=== PATIENT | male | born 1945 | race Caucasian/White ===

== ENCOUNTER 2017-04-12 13:47 | Inpatient (IN) | payer OTHER ==
[~2017-04-12] VITALS: Ht 172.7 cm; Wt 46.8 kg
[2017-04-12 14:33] LABS: HEMATOCRIT 32.2 % (38.0-50.0); HEMOGLOBIN 10.5 G/DL (12.5-16.6); MCH 29.7 PG (29.0-34.0); MCHC 32.6 G/DL (30.0-36.0); PLATELET COUNT 192 K/uL (156-360); RBC DIS.WIDTH-CV 15.5 % (11.8-14.6); RBC DIS.WIDTH-SD 51.2 % (39-53); RED BLOOD COUNT 3.54 M/uL (4.00-5.50); WHITE BLOOD COUNT 5.9 K/uL (4.1-10.2)
[2017-04-12 14:51] LABS: CHLORIDE 108 mEq/L (99-109); POTASSIUM 4.3 mEq/L (3.7-5.4); SODIUM 139 mEq/L (136-147)
[2017-04-12 14:53] LABS: GLUCOSE 96 mg/dL (70-99)
[2017-04-12 14:57] LABS: CREATININE 2.4 mg/dL (0.6-1.3); GFR ESTIMATE (CALCULATED) 29 mL/min/ (58.99-99999)
[2017-04-12 14:58] LABS: UREA NITROGEN (BUN) 38 mg/dL (9-23)
[2017-04-12 16:50] LABS: TROP-I INTERPRETATION NEGATIVE; TROPONIN-I 0.03 ng/mL (0.0-0.30)
[2017-04-12 18:36] LABS: ALBUMIN 2.9 g/dL (3.2-4.8)
[2017-04-12 18:38] LABS: TOTAL PROTEIN 5.6 g/dL (6.4-8.3)
[2017-04-12 18:40] LABS: TOTAL BILIRUBIN 0.3 mg/dL (0.0-1.0)
[2017-04-12 18:41] LABS: ALKALINE PHOSPHATASE 209 IU/L (3-129)
[2017-04-12 18:44] LABS: ALT (GPT) 31 IU/L (3-49); AST (GOT) 38 IU/L (2-34); DIRECT BILIRUBIN 0.2 mg/dL (0.0-0.3)
[2017-04-12 18:45] LABS: LIPASE 21 U/L (1.0-51.0)
[2017-04-12 18:50] LABS: APPEARANCE SL.HAZY ((CLEAR)); BILIRUBIN NEGATIVE; BLOOD LARGE; COLOR YELLOW ((YELLOW)); GLUCOSE (STRIP) 50; KETONES 5; LEUKOCYTES NEGATIVE; NITRITE NEGATIVE; PROTEIN (STRIP) >=500; UROBILINOGEN 0.2 MG/DL (0.2-1.0)
[2017-04-12 18:59] LABS: BACTERIA RARE /HPF; EPITHELIAL CELLS RARE /HPF; MUCUS TRACE /LPF; RED BLOOD CELLS TNTC /HPF (0-5)
[2017-04-12] MEDS ORDERED: LO-DOSE ASPIRIN81 M2 PO (19:42)
[2017-04-12 23:56] VITALS: BP 143/74
[2017-04-13] VITALS (7 sets, daily range): BP systolic 101–149; BP diastolic 55–84
[2017-04-13 00:41] LABS: TROP-I INTERPRETATION NEGATIVE; TROPONIN-I 0.07 ng/mL (0.0-0.30)
[2017-04-13 07:56] LABS: INTER. NORMALIZED RATIO 1.1
[2017-04-13 07:58] LABS: PTT 38.8 SEC (25-37)
[2017-04-13 07:59] LABS: HEMATOCRIT 30.3 % (38.0-50.0); HEMOGLOBIN 9.8 G/DL (12.5-16.6); MCH 29.1 PG (29.0-34.0); MCHC 32.3 G/DL (30.0-36.0); MCV 89.9 FL (86-99); PLATELET COUNT 188 K/uL (156-360); RBC DIS.WIDTH-CV 15.6 % (11.8-14.6); RBC DIS.WIDTH-SD 51.7 % (39-53); RED BLOOD COUNT 3.37 M/uL (4.00-5.50); WHITE BLOOD COUNT 5.5 K/uL (4.1-10.2)
[2017-04-13 08:04] LABS: CHLORIDE 110 MEQ/L (99-109); POTASSIUM 4.7 MEQ/L (3.7-5.4); SODIUM 140 MEQ/L (136-147)
[2017-04-13 08:10] LABS: CREATININE 2.3 MG/DL (0.6-1.3); GFR ESTIMATE (CALCULATED) 30 mL/min/ (58.99-99999); GLUCOSE 79 mg/dL (70-99); LACTATE DEHYDROGENASE 262 IU/L (20-246); TOTAL PROTEIN 5.1 G/DL (6.4-8.3); UREA NITROGEN (BUN) 36 mg/dL (9-23)
[2017-04-13 09:40] LABS: TYPE OF FLUID PLEURAL
[2017-04-13 09:57] LABS: TYPE OF FLUID THORACENTESIS
[2017-04-13 10:24] LABS: APPEARANCE CLEAR-COLORLESS; BODY FLUID EOSINOPHILS 0 % (0-25); BODY FLUID RBC'S < 1000 /MM^3 (0-100); BODY FLUID WBC'S 437 /MM^3 (0-500); MONONUCLEAR WBC'S 99 %; POLYNUCLEAR WBC'S 1 % (0-25)
[2017-04-13 10:59] LABS: BODY FLUID LDH 48 IU/L; BODY FLUID PROTEIN < 3.0 G/DL
[2017-04-13 11:00] LABS: BODY FLUID LDH 54 IU/L; BODY FLUID PROTEIN < 3.0 G/DL
[2017-04-13 11:07] LABS: APPEARANCE SL. HAZY-COLORLESS; BODY FLUID EOSINOPHILS 0 % (0-25); BODY FLUID RBC'S 1000 /MM^3 (0-100); BODY FLUID WBC'S 1120 /MM^3 (0-500); MONONUCLEAR WBC'S 94 %; POLYNUCLEAR WBC'S 6 % (0-25)
[2017-04-14 05:32] VITALS: BP 115/71
[2017-04-14 06:38] LABS: HEMATOCRIT 27.7 % (38.0-50.0); HEMOGLOBIN 9.1 G/DL (12.5-16.6); MCH 29.2 PG (29.0-34.0); MCHC 32.9 G/DL (30.0-36.0); MCV 88.8 FL (86-99); PLATELET COUNT 235 K/uL (156-360); RBC DIS.WIDTH-CV 15.8 % (11.8-14.6); RBC DIS.WIDTH-SD 51.4 % (39-53); RED BLOOD COUNT 3.12 M/uL (4.00-5.50); WHITE BLOOD COUNT 7.6 K/uL (4.1-10.2)
[2017-04-14 06:47] LABS: CHLORIDE 105 MEQ/L (99-109); CREATININE 2.6 MG/DL (0.6-1.3); GFR ESTIMATE (CALCULATED) 26 mL/min/ (58.99-99999); GLUCOSE 78 mg/dL (70-99); POTASSIUM 4.5 MEQ/L (3.7-5.4); UREA NITROGEN (BUN) 38 mg/dL (9-23)
[2017-04-14 06:57] LABS: SODIUM 132 MEQ/L (136-147)
[2017-04-14 08:27] VITALS: BP 118/61
[2017-04-14 10:08] LABS: CHLORIDE 104 MEQ/L (99-109); CREATININE 2.7 MG/DL (0.6-1.3); GFR ESTIMATE (CALCULATED) 25 mL/min/ (58.99-99999); SODIUM 135 MEQ/L (136-147); UREA NITROGEN (BUN) 36 mg/dL (9-23)
[2017-04-14 10:11] LABS: GLUCOSE 108 mg/dL (70-99)
[2017-04-14 11:30] VITALS: BP 113/64
[2017-04-14 15:58] VITALS: BP 104/56
[2017-04-14 19:52] VITALS: BP 106/58
[2017-04-14 23:19] VITALS: BP 102/59
[2017-04-15] VITALS (7 sets, daily range): BP systolic 95–116; BP diastolic 52–61
[2017-04-15 05:50] LABS: BASOPHIL (%) 0.5 % (0-1); EOSINOPHIL (%) 4.5 % (0-5); EOSINOPHIL COUNT 0.3 K/uL (0-0.3); HEMATOCRIT 25.6 % (38.0-50.0); HEMOGLOBIN 8.3 G/DL (12.5-16.6); IMMATURE GRANULOCYTE (%) 0.3 % (0.0-0.7); LYMPHOCYTE (%) 28.3 % (15-42); LYMPHOCYTE COUNT 1.7 K/uL (1.0-2.8); MCH 28.9 PG (29.0-34.0); MCHC 32.4 G/DL (30.0-36.0); MCV 89.2 FL (86-99); MONOCYTE (%) 7.3 % (3-12); MONOCYTE COUNT 0.4 K/uL (0-0.8); NEUTROPHIL (%) 59.1 % (45-76); NEUTROPHIL COUNT 3.6 K/uL (1.8-6.4); PLATELET COUNT 210 K/uL (156-360); RBC DIS.WIDTH-CV 15.7 % (11.8-14.6); RBC DIS.WIDTH-SD 50.7 % (39-53); RED BLOOD COUNT 2.87 M/uL (4.00-5.50)
[2017-04-15 06:11] LABS: C4 COMPLEMENT 55 MG/DL (10-40)
[2017-04-15 06:12] LABS: ALBUMIN 2.2 G/DL (3.2-4.8); ALKALINE PHOSPHATASE 128 IU/L (3-129); ALT (GPT) 14 IU/L (3-49); AST (GOT) 23 IU/L (2-34); CHLORIDE 101 MEQ/L (99-109); CREATININE 2.7 MG/DL (0.6-1.3); GFR ESTIMATE (CALCULATED) 25 mL/min/ (58.99-99999); GLUCOSE 88 mg/dL (70-99); POTASSIUM 4.9 MEQ/L (3.7-5.4); SODIUM 131 MEQ/L (136-147); TOTAL BILIRUBIN 0.4 MG/DL (0.0-1.0); UREA NITROGEN (BUN) 44 mg/dL (9-23)
[2017-04-15 06:13] LABS: INTACT PARATHYROID HORMONE 131 pg/mL (10-69)
[2017-04-15 06:14] LABS: CHLORIDE 102 MEQ/L (99-109); CREATININE 2.6 MG/DL (0.6-1.3); GFR ESTIMATE (CALCULATED) 26 mL/min/ (58.99-99999); GLUCOSE 91 mg/dL (70-99); PHOSPHORUS 3.4 mg/dL (2.5-4.9); POTASSIUM 4.9 MEQ/L (3.7-5.4); SODIUM 131 MEQ/L (136-147); UREA NITROGEN (BUN) 44 mg/dL (9-23)
[2017-04-15 06:15] LABS: A/G RATIO 0.9 (1.1-1.8); ALBUMIN 2.1 G/DL (3.4-5.0); GLOBULINS 2.4 G/DL (2.3-3.5); TOTAL PROTEIN 4.5 G/DL (6.4-8.2)
[2017-04-15 09:56] LABS: HEPATITIS B SURFACE ANTIGEN Nonreactive
[2017-04-15 09:57] LABS: HEPATITIS C ANTIBODY Nonreactive
[2017-04-15 13:05] LABS: ALBUMIN 1.92 G/DL (3.6-4.9); ALPHA-1 GLOBULIN 0.39 G/DL (0.15-0.40); ALPHA-2 GLOBULIN 0.75 G/DL (0.45-0.85); GAMMA-GLOBULIN 0.75 G/DL (0.60-1.35)
[2017-04-16 03:36] VITALS: BP 110/53
[2017-04-16 04:56] LABS: UR CREATININE CONCENTRATION 147.8 MG/DL
[2017-04-16 05:23] LABS: BASOPHIL (%) 0.5 % (0-1); EOSINOPHIL (%) 4.8 % (0-5); EOSINOPHIL COUNT 0.3 K/uL (0-0.3); HEMATOCRIT 26.1 % (38.0-50.0); HEMOGLOBIN 8.6 G/DL (12.5-16.6); IMMATURE GRANULOCYTE (%) 0.5 % (0.0-0.7); LYMPHOCYTE (%) 27.8 % (15-42); LYMPHOCYTE COUNT 1.5 K/uL (1.0-2.8); MCH 29.6 PG (29.0-34.0); MCV 89.7 FL (86-99); MONOCYTE (%) 7.5 % (3-12); MONOCYTE COUNT 0.4 K/uL (0-0.8); NEUTROPHIL (%) 58.9 % (45-76); NEUTROPHIL COUNT 3.2 K/uL (1.8-6.4); RBC DIS.WIDTH-CV 15.7 % (11.8-14.6); RBC DIS.WIDTH-SD 51.8 % (39-53); RED BLOOD COUNT 2.91 M/uL (4.00-5.50); WHITE BLOOD COUNT 5.5 K/uL (4.1-10.2)
[2017-04-16 05:56] LABS: BODY FLUID PH 8.1 (())
[2017-04-16 06:50] LABS: PLAT.SUFFICIENCY ADEQUATE
[2017-04-16 07:36] VITALS: BP 116/60
[2017-04-16 08:43] LABS: FOLIC ACID (FOLATE) 14.4 NG/ML (5.0-22.0)
[2017-04-16 08:48] LABS: PLATELET COUNT UNABLE TO REPORT K/uL (156-360)
[2017-04-16 08:49] LABS: ALBUMIN 1.9 G/DL (3.2-4.8); ALKALINE PHOSPHATASE 119 IU/L (3-129); ALT (GPT) 18 IU/L (3-49); CHLORIDE 103 MEQ/L (99-109); CREATININE 2.5 MG/DL (0.6-1.3); FERRITIN 609 NG/ML (22-322); GFR ESTIMATE (CALCULATED) 27 mL/min/ (58.99-99999); GLUCOSE 81 mg/dL (70-99); IRON 34 MCG/DL (35-150); PHOSPHORUS 3.4 mg/dL (2.5-4.9); POTASSIUM 5.1 MEQ/L (3.7-5.4); SODIUM 132 MEQ/L (136-147); TOTAL BILIRUBIN 0.4 MG/DL (0.0-1.0); TRANSFERRIN SATUR. 28 % (20-55); UREA NITROGEN (BUN) 46 mg/dL (9-23)
[2017-04-16 08:51] LABS: AST (GOT) 34 IU/L (2-34); TOTAL PROTEIN 4.2 G/DL (6.4-8.3)
[2017-04-16 11:18] VITALS: BP 115/69
[2017-04-16 15:33] VITALS: BP 112/64
[2017-04-16 20:01] VITALS: BP 94/55
[2017-04-16 23:50] VITALS: BP 115/61
[2017-04-17 04:28] VITALS: BP 121/67
[2017-04-17 06:42] LABS: BASOPHIL (%) 0.7 % (0-1); EOSINOPHIL (%) 4.6 % (0-5); EOSINOPHIL COUNT 0.3 K/uL (0-0.3); HEMATOCRIT 25.3 % (38.0-50.0); HEMOGLOBIN 8.3 G/DL (12.5-16.6); IMMATURE GRANULOCYTE (%) 0.7 % (0.0-0.7); LYMPHOCYTE COUNT 1.5 K/uL (1.0-2.8); MCH 29.2 PG (29.0-34.0); MCHC 32.8 G/DL (30.0-36.0); MCV 89.1 FL (86-99); MONOCYTE (%) 6.9 % (3-12); MONOCYTE COUNT 0.4 K/uL (0-0.8); NEUTROPHIL (%) 60.1 % (45-76); NEUTROPHIL COUNT 3.4 K/uL (1.8-6.4); PLATELET COUNT 216 K/uL (156-360); RBC DIS.WIDTH-CV 15.7 % (11.8-14.6); RBC DIS.WIDTH-SD 51.5 % (39-53); RED BLOOD COUNT 2.84 M/uL (4.00-5.50); WHITE BLOOD COUNT 5.6 K/uL (4.1-10.2)
[2017-04-17 06:50] LABS: CHLORIDE 103 MEQ/L (99-109); CREATININE 2.2 MG/DL (0.6-1.3); GFR ESTIMATE (CALCULATED) 32 mL/min/ (58.99-99999); GLUCOSE 66 mg/dL (70-99); SODIUM 132 MEQ/L (136-147); UREA NITROGEN (BUN) 42 mg/dL (9-23)
[2017-04-17 08:07] VITALS: BP 105/58
[2017-04-17 10:19] LABS: CREATININE 2.7 MG/DL (0.6-1.3)
[2017-04-17 10:20] LABS: UR CREATININE CONCENTRATION 132.1 MG/DL
[2017-04-17 11:54] VITALS: BP 115/56
[2017-04-17] MEDS ORDERED: CARVEDILOL3.125 MG PO (12:42)
[2017-04-18 13:39] LABS: Neutrophil Cytoplasmic Aby Negative (Negative)
[2017-04-18 15:17] LABS: GLOMERULAR BASEMENT MEMB ABY+ <1.0 AI (<1.0)
== END 2017-04-17 14:28 | disposition home or self-care (01) | DRG 291 ==
LOC: EME 13:47 → EDOF 21:54 → ENRESERV 21:54 → 3EAST 21:54 → ENRESERV 22:00 → 3EAST 23:56
PROVIDERS: Anesthesiology; Hospitalist; Internal Medicine; Internal Medicine Nephrology; Physician Assistant; Radiology Diagnostic Radiology
DX: I13.0 Hypertensive heart and chronic kidney disease with heart failure and stage 1 through stage 4 chronic kidney disease, or unspecified chronic kidney disease (principal); I50.23 Acute on chronic systolic (congestive) heart failure; J91.8 Pleural effusion in other conditions classified elsewhere; N17.9 Acute kidney failure, unspecified; N18.4 Chronic kidney disease, stage 4 (severe); E46 Unspecified protein-calorie malnutrition; Z68.1 Body mass index [BMI] 19.9 or less, adult; I95.9 Hypotension, unspecified; R64 Cachexia; J43.9 Emphysema, unspecified; I27.20 Pulmonary hypertension, unspecified; I36.1 Nonrheumatic tricuspid (valve) insufficiency; E87.1 Hypo-osmolality and hyponatremia; K80.20 Calculus of gallbladder without cholecystitis without obstruction; R80.9 Proteinuria, unspecified; R31.9 Hematuria, unspecified; D64.9 Anemia, unspecified; I42.9 Cardiomyopathy, unspecified; Z87.891 Personal history of nicotine dependence; Z91.19 Patient's noncompliance with other medical treatment and regimen; Z79.82 Long term (current) use of aspirin
CPT/HCPCS: 71045; 71046; 71250; 74176; 76770; 76942; 80048; 80048 91; 80053; 80076; 81003; 81050; 82306; 82570; 82575; 82607; 82728; 82746; 83520 90; 83540; 83605; 83615; 83615 91; 83690; 83735; 83880; 83883 90; 83935; 83970; 83986 90; 84100; 84155; 84156; 84157; 84165; 84300; 84466; 84484; 85025; 85027; 85610; 85730; 86021 90; 86038; 86160; 86235; 86803; 87040; 87070; 87075; 87205; 87340; 88108; 89051; 93005; 93306; 94640; 94640 76; 94760; 99202; 99281; 99285; J1644; J1940; J2405; J7030

== ENCOUNTER 2017-09-04 04:47 | Inpatient (IN) | payer OTHER ==
[~2017-09-04] VITALS: Ht 172.7 cm; Wt 45.0 kg
[~2017-09-04 04:47] MED LIST: CARVEDILOL3.125 MG PO; LO-DOSE ASPIRIN81 M2 PO
[2017-09-04 05:26] LABS: INTER. NORMALIZED RATIO 1.1
[2017-09-04 05:29] LABS: ALBUMIN 2.4 g/dL (3.2-4.8); CHLORIDE 104 mEq/L (99-109); POTASSIUM 5.7 mEq/L (3.7-5.4); PTT 34.5 SEC (25-37); SODIUM 134 mEq/L (136-147)
[2017-09-04 05:31] LABS: GLUCOSE 70 mg/dL (70-99); TOTAL PROTEIN 5.8 g/dL (6.4-8.3)
[2017-09-04 05:33] LABS: TOTAL BILIRUBIN 0.4 mg/dL (0.0-1.0)
[2017-09-04 05:35] LABS: ALKALINE PHOSPHATASE 109 IU/L (3-129); CREATININE 3.9 mg/dL (0.6-1.3); GFR ESTIMATE (CALCULATED) 16 mL/min/ (58.99-99999)
[2017-09-04 05:36] LABS: UREA NITROGEN (BUN) 65 mg/dL (9-23)
[2017-09-04 05:37] LABS: AST (GOT) 27 IU/L (2-34)
[2017-09-04 05:38] LABS: ALT (GPT) 18 IU/L (3-49); LIPASE 74 U/L (1.0-51.0)
[2017-09-04 05:41] LABS: TROP-I INTERPRETATION NEGATIVE; TROPONIN-I 0.03 ng/mL (0.0-0.30)
[2017-09-04 06:06] LABS: HEMATOCRIT 19.9 % (38.0-50.0); MCH 31.9 PG (29.0-34.0); MCHC 34.7 G/DL (30.0-36.0); MCV 92.1 FL (86-99); PLATELET COUNT 263 K/uL (156-360); RBC DIS.WIDTH-CV 13.3 % (11.8-14.6); RBC DIS.WIDTH-SD 45.2 % (39-53); RED BLOOD COUNT 2.16 M/uL (4.00-5.50); WHITE BLOOD COUNT 11.9 K/uL (4.1-10.2)
[2017-09-04 06:07] LABS: HEMOGLOBIN 6.9 G/DL (12.5-16.6)
[2017-09-04] MEDS ORDERED: CARVEDILOL3.125 MG PO (07:39)
[2017-09-04] MEDS ORDERED: ONDANSETRON HCL4 MG PO (07:39)
[2017-09-04] MEDS ORDERED: FERROUS SULFAT325 MG PO (07:39)
[2017-09-04] MEDS ORDERED: FUROSEMIDE40 MG PO (07:40)
[2017-09-04 09:17] LABS: LACTATE DEHYDROGENASE 360 IU/L (20-246)
[2017-09-04 09:39] LABS: IRON 83 MCG/DL (35-150); TRANSFERRIN (TIBC) 150.9 mg/dL (215-380); TRANSFERRIN SATUR. 55 % (20-55)
[2017-09-04 09:54] VITALS: BP 112/57
[2017-09-04 10:01] LABS: TYPE OF FLUID PLEURAL
[2017-09-04 10:03] LABS: FOLIC ACID (FOLATE) 10.9 NG/ML (5.0-22.0)
[2017-09-04 10:06] LABS: IMM.RETIC FRACTION 15.9 % (3-19); RETIC HGB EQUIVALENT 35.4 (28-36); RETICULOCYTE COUNT 1.3 % (0.5-1.8)
[2017-09-04 10:31] VITALS: BP 110/55
[2017-09-04 10:42] LABS: BODY FLUID GLUCOSE 84 MG/DL; BODY FLUID LDH 34 IU/L; BODY FLUID PROTEIN < 3.0 G/DL
[2017-09-04 10:45] LABS: FERRITIN 1372 NG/ML (22-322)
[2017-09-04 10:58] LABS: APPEARANCE SL. HAZY-YELLOW; BODY FLUID EOSINOPHILS 0 % (0-25); BODY FLUID RBC'S < 1000 /MM^3 (0-100); BODY FLUID WBC'S 215 /MM^3 (0-500); COMMENT MODERATE MACROPHAGES SEEN; MONONUCLEAR WBC'S 90 %; POLYNUCLEAR WBC'S 10 % (0-25)
[2017-09-04 11:30] VITALS: BP 111/57
[2017-09-04 12:41] VITALS: BP 85/75
[2017-09-04 14:32] LABS: HEMATOCRIT 28.6 % (38.0-50.0); HEMOGLOBIN 9.4 G/DL (12.5-16.6); MCV 92.9 FL (86-99)
[2017-09-04 15:43] VITALS: BP 98/58
[2017-09-04 20:58] VITALS: BP 99/55
[2017-09-05 00:08] VITALS: BP 99/63
[2017-09-05 03:37] LABS: APPEARANCE CLOUDY ((CLEAR)); BILIRUBIN NEGATIVE; BLOOD LARGE; COLOR YELLOW ((YELLOW)); GLUCOSE (STRIP) 150; KETONES NEGATIVE; LEUKOCYTES NEGATIVE; NITRITE NEGATIVE; PROTEIN (STRIP) >=500; SPECIFIC GRAVITY 1.014 (1.000-1.030); UROBILINOGEN 0.2 MG/DL (0.2-1.0)
[2017-09-05 03:48] LABS: BACTERIA NONE SEEN /HPF; EPITHELIAL CELLS RARE /HPF; MUCUS TRACE /LPF; RED BLOOD CELLS TNTC /HPF (0-5); UCUL ADDED? YES; WHITE BLOOD CELLS 0-5 /HPF (0-5)
[2017-09-05 05:22] VITALS: BP 98/50
[2017-09-05 05:42] LABS: BASOPHIL (%) 0.4 % (0-1); EOSINOPHIL (%) 5.8 % (0-5); EOSINOPHIL COUNT 0.3 K/uL (0-0.3); HEMATOCRIT 22.8 % (38.0-50.0); HEMOGLOBIN 7.7 G/DL (12.5-16.6); IMMATURE GRANULOCYTE (%) 0.4 % (0.0-0.7); LYMPHOCYTE COUNT 1.1 K/uL (1.0-2.8); MCH 30.2 PG (29.0-34.0); MCHC 33.8 G/DL (30.0-36.0); MCV 89.4 FL (86-99); MONOCYTE (%) 6.8 % (3-12); MONOCYTE COUNT 0.3 K/uL (0-0.8); NEUTROPHIL (%) 63.6 % (45-76); RBC DIS.WIDTH-CV 14.3 % (11.8-14.6); RED BLOOD COUNT 2.55 M/uL (4.00-5.50); WHITE BLOOD COUNT 4.7 K/uL (4.1-10.2)
[2017-09-05 05:55] LABS: ALBUMIN 2.5 G/DL (3.2-4.8); ALKALINE PHOSPHATASE 52 IU/L (3-129); ALT (GPT) 7 IU/L (3-49); AST (GOT) 13 IU/L (2-34); CHLORIDE 106 MEQ/L (99-109); CREATININE 3.8 MG/DL (0.6-1.3); GFR ESTIMATE (CALCULATED) 17 mL/min/ (58.99-99999); GLUCOSE 80 mg/dL (70-99); MAGNESIUM 1.7 mg/dl (1.3-2.7); SODIUM 137 MEQ/L (136-147); TOTAL BILIRUBIN 0.4 MG/DL (0.0-1.0); TOTAL PROTEIN 4.6 G/DL (6.4-8.3); UREA NITROGEN (BUN) 67 mg/dL (9-23); URIC ACID 6.5 mg/dL (3.1-9.2)
[2017-09-05 06:02] LABS: PLAT.SUFFICIENCY DECREASED
[2017-09-05 06:35] LABS: PLATELET COUNT 89 K/uL (156-360)
[2017-09-05 08:05] VITALS: BP 102/58
[2017-09-05 10:20] VITALS: BP 116/56
[2017-09-05 15:29] VITALS: BP 109/63
[2017-09-05 20:30] LABS: HEMATOCRIT 25.5 % (38.0-50.0); HEMOGLOBIN 8.7 G/DL (12.5-16.6); MCV 90.4 FL (86-99)
[2017-09-05 21:05] VITALS: BP 126/79
[2017-09-06] VITALS (7 sets, daily range): BP systolic 100–134; BP diastolic 62–92
[2017-09-06 05:14] LABS: BASOPHIL (%) 0.4 % (0-1); EOSINOPHIL (%) 9.9 % (0-5); EOSINOPHIL COUNT 0.7 K/uL (0-0.3); HEMATOCRIT 27.4 % (38.0-50.0); HEMOGLOBIN 9.1 G/DL (12.5-16.6); IMMATURE GRANULOCYTE (%) 0.6 % (0.0-0.7); LYMPHOCYTE (%) 24.5 % (15-42); LYMPHOCYTE COUNT 1.7 K/uL (1.0-2.8); MCH 30.7 PG (29.0-34.0); MCHC 33.2 G/DL (30.0-36.0); MCV 92.6 FL (86-99); MONOCYTE (%) 6.5 % (3-12); MONOCYTE COUNT 0.5 K/uL (0-0.8); NEUTROPHIL (%) 58.1 % (45-76); RBC DIS.WIDTH-CV 14.5 % (11.8-14.6); RBC DIS.WIDTH-SD 49.1 % (39-53); RED BLOOD COUNT 2.96 M/uL (4.00-5.50); WHITE BLOOD COUNT 6.9 K/uL (4.1-10.2)
[2017-09-06 05:31] LABS: PLATELET COUNT 133 K/uL (156-360)
[2017-09-06 05:34] LABS: CHLORIDE 104 MEQ/L (99-109); CREATININE 3.6 MG/DL (0.6-1.3); GFR ESTIMATE (CALCULATED) 18 mL/min/ (58.99-99999); GLUCOSE 86 mg/dL (70-99); MAGNESIUM 1.7 mg/dl (1.3-2.7); PHOSPHORUS 4.3 mg/dL (2.5-4.9); POTASSIUM 4.3 MEQ/L (3.7-5.4); SODIUM 135 MEQ/L (136-147); UREA NITROGEN (BUN) 59 mg/dL (9-23)
[2017-09-06 18:17] LABS: C DIFF TOXIN NEGATIVE (NEGATIVE)
[2017-09-06 19:31] LABS: HEMATOCRIT 28.8 % (38.0-50.0); HEMOGLOBIN 9.9 G/DL (12.5-16.6); MCV 91.1 FL (86-99)
[2017-09-07 04:30] VITALS: BP 130/82
[2017-09-07 07:11] VITALS: BP 138/65
== END 2017-09-07 11:50 | disposition left against medical advice (07) | DRG 811 ==
LOC: EME 04:47 → EDOF 08:07 → 4EAST 08:07 → ENRESERV 08:10 → 4EAST 09:46
PROVIDERS: Emergency Medicine; Hospitalist; Internal Medicine; Internal Medicine Gastroenterology; Internal Medicine Nephrology
PROC: 30233N1 Transfusion of Nonautologous Red Blood Cells into Peripheral Vein, Percutaneous Approach (ICD-10-PCS; principal; 2017-09-04)
PROC: 0DB98ZX Excision of Duodenum, Via Natural or Artificial Opening Endoscopic, Diagnostic (ICD-10-PCS; 2017-09-05)
DX: D64.9 Anemia, unspecified (principal); K29.71 Gastritis, unspecified, with bleeding; N17.0 Acute kidney failure with tubular necrosis; I50.23 Acute on chronic systolic (congestive) heart failure; J18.9 Pneumonia, unspecified organism; I13.0 Hypertensive heart and chronic kidney disease with heart failure and stage 1 through stage 4 chronic kidney disease, or unspecified chronic kidney disease; N18.4 Chronic kidney disease, stage 4 (severe); J44.0 Chronic obstructive pulmonary disease with (acute) lower respiratory infection; R18.8 Other ascites; I42.9 Cardiomyopathy, unspecified; Z68.1 Body mass index [BMI] 19.9 or less, adult; R64 Cachexia; I25.10 Atherosclerotic heart disease of native coronary artery without angina pectoris; Z91.19 Patient's noncompliance with other medical treatment and regimen; Z87.891 Personal history of nicotine dependence; E78.5 Hyperlipidemia, unspecified; E78.2 Mixed hyperlipidemia; I27.20 Pulmonary hypertension, unspecified; Z79.82 Long term (current) use of aspirin
CPT/HCPCS: 71045; 74176; 76942; 80048; 80053; 81003; 82607; 82728; 82746; 82945; 83540; 83605; 83615; 83615 91; 83690; 83735; 83880; 83986 90; 84100; 84145 90; 84157; 84466; 84484; 84550; 85014; 85018; 85025; 85027; 85046; 85610; 85730; 86850; 86880; 86900; 86901; 86920; 87040; 87070; 87086; 87205; 87449; 87493; 88108; 88305; 88342 TC; 89051; 93005; 94640; 94640 76; 94799; 99202; 99281; 99285; J0456; J0696; J2405; J7030; J7040; P9016; P9047